=== PATIENT | female | born 1960 | race Caucasian/White ===

== ENCOUNTER 2017-04-17 08:16 | Observation (INO) | payer OTHER ==
[~2017-04-17] VITALS: Ht 160 cm; Wt 61.2 kg
[2017-04-17] MEDS ORDERED: ASPIRIN 81 MG CHEW TAB PO STA (08:37)
[2017-04-17 09:27] LABS: HEMATOCRIT 40.6 % (34.2-44.1); HEMOGLOBIN 13.9 g/dL (12.0-16.0); MEAN CORPUSCULAR HEMOGLOBIN 33.1 pg (28-32); MEAN CORPUSCULAR HGB CONC 34.2 g/dL (31-35); MEAN CORPUSCULAR VOLUME 96.7 fL (81-99); RED CELL DISTRIBUTION WIDTH 13.2 % (11.7-14.4)
[2017-04-17 09:28] LABS: BASOPHILS # (AUTO) 0.1 (0.0-0.1); EOSINOPHILS # (AUTO) 0.1 (0.0-0.4); EOSINOPHILS % 0.9 % (0.0-6.0); LYMPHOCYTES # (AUTO) 2.6 (1.0-3.2); LYMPHOCYTES % 26.1 % (18.0-39.1); MONOCYTES # (AUTO) 0.6 (0.2-0.8); NEUTROPHILS # (AUTO) 6.4 (2.1-6.9); NEUTROPHILS % 65.7 % (38.7-80.0); PLATELET COUNT 198 x10e3/uL (140-360)
--- NOTE | 2017-04-17 09:29 | Diagnostic Imaging Report ---
PROCEDURE: CHEST SINGLE (PORTABLE) COMPARISON: Patients [facility], DX, CHEST 2 VIEWS, 08/22/2012, 15:11. INDICATIONS: SOB, CHEST PAIN FINDINGS: LUNGS: No consolidations or edema. PLEURA: No effusions or pneumothorax. HEART \T\ MEDIASTINUM: The heart is within normal size-limits. BONES \T\ SOFT TISSUES: No acute findings. CONCLUSION: No acute thoracic abnormality. Harley Arthur D.O. Dictated by: Harley Arthur D.O. on 04/17/2017 at 9:36 Electronically approved by: Harley Arthur D.O. on 04/17/2017 at 9:36
[2017-04-17 09:38] LABS: ANION GAP 12.9 mmol/L (8-16); BLOOD UREA NITROGEN 15 mg/dL (7-26); CARBON DIOXIDE 24 mmol/L (22-29); CHLORIDE 106 mmol/L (98-107); POTASSIUM 3.9 mmol/L (3.5-5.1); SODIUM 139 mmol/L (136-145)
[2017-04-17 09:39] LABS: ALANINE AMINOTRANSFERASE 18 IU/L (0-55); ALBUMIN 4.2 g/dL (3.5-5.0); ALBUMIN/GLOBULIN RATIO 1.2 (0.8-2.0); BUN/CREATININE RATIO 21 (6-25); CREATININE, SERUM 0.72 mg/dL (0.57-1.11); EST GLOMERULAR FILTRATION RATE > 60 ML/MIN (60-); GLUCOSE 100 mg/dL (74-118)
[2017-04-17 09:40] LABS: ALKALINE PHOSPHATASE 71 IU/L (40-150); CREATINE KINASE 66 IU/L (29-168); TROPONIN I < 0.300 ng/mL (0-0.300)
[2017-04-17] MEDS ORDERED: NITROGLYCERIN 0.4 MG SUBL SL PRN (10:30)
--- NOTE | 2017-04-17 13:03 | History and Physical ---
CHIEF COMPLAINT: Ms. 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 HISTORY OF PRESENT ILLNESS: The patient reports she was at work in her office when she developed some substernal chest pressure. She denies any shortness of breath, perspiration. No nausea or vomiting. It lasted 20 to 25 minutes and was resolved by the time she came to the emergency room. PAST MEDICAL HISTORY: Significant for remote tonsillectomy and tubal ligation. She takes only 1 medication of Lipitor. No other medications. She does not know of any hypertension or diabetes. PERSONAL AND SOCIAL HISTORY: She does not smoke. FAMILY HISTORY: Father at age 48 of abdominal aortic aneurysm. He was a smoker. Mother at age 60 of COPD and stroke. She has a brother that of perforated gastric ulcer. REVIEW OF SYSTEMS: Otherwise unremarkable. PHYSICAL EXAMINATION: GENERAL: At this time shows a pleasant, alert white woman who is now comfortable, eating a hamburger. VITAL SIGNS: Blood pressure 145/70. She tells me that her blood pressure was 180/90 when checked by spinning doffer earlier this morning although she does not know of having hypertension. HEENT: Unremarkable. NECK: No jugular venous distention. THORAX: Heart sounds S1 and S2 are equal. No murmurs. Lungs are clear. Chest nontender. ABDOMEN: Protuberant. Normal bowel sounds. Nontender. No masses or organomegaly. EXTREMITIES: Have no cyanosis, clubbing or edema. EKG is normal. Cardiac enzymes are normal. CBC is unremarkable. Chemistry showed glucose 100, normal BUN and creatinine. Bilirubin, AST and ALT, alk phos are all normal. Chest x-ray is unremarkable. ASSESSMENT: 1. Atypical chest discomfort. Not clear etiology with normal EKGs and cardiac enzymes. 2. History of hyperlipidemia. 3. New single finding of elevated blood pressure. PLAN: Will perform a stress test for her today with further evaluation based on the results of study. Job#: [id number] EV cc:CARROL BRICE MD
[2017-04-17 13:43] VITALS: BP 119/77
[2017-04-18] MEDS ORDERED: ASPIRIN 325 MG TAB EC PO SCH (09:00)
--- NOTE | 2017-04-19 15:53 | Cardiology Report ---
DATE OF STUDY: April 17, 2017 MARINO PROTOCOL STRESS TEST ONLY The patient exercised on Marino protocol for a total of 4 minutes 1 second, reaching greater than 85% of age-predicted maximum, with maximum rate of 155. There were no EKG changes and no chest pain and no arrhythmia. Her blood pressure response to exercise was normal. FINAL IMPRESSION 1. Normal exercise stress test for absence of ischemia. 2. No chest pain. 3. No arrhythmia. 4. Normal blood pressure response. Job#: [id number]
== END 2017-04-17 13:59 | disposition home or self-care (01) ==
LOC: ER 08:16 → UNDOADMOB 11:04 → ERHOLD 11:04
PROVIDERS: ADMIT Internal Medicine Cardiovascular Disease; ATTEND Internal Medicine Cardiovascular Disease
DX: R07.89 Other chest pain (principal); R03.0 Elevated blood-pressure reading, without diagnosis of hypertension; E78.5 Hyperlipidemia, unspecified
CPT/HCPCS: 36415; 71010; 80053; 82550; 82553; 84484; 85025; 93005; 93017; 99284; G0378